=== PATIENT | male | born 1970 | race Caucasian/White ===

== ENCOUNTER 2017-04-09 21:14 | Emergency (ER) | payer OTHER ==
[2017-04-09 21:28] VITALS: BP 123/90; PULSE 96
[2017-04-09 21:36] VITALS: O2SAT 97
--- NOTE | 2017-04-09 21:53 | ERPHSYRPT ---
- History of Present Illness Time Seen by Provider: 04/09/17 21:51 Source: patient Exam Limitations: no limitations Patient Subjective Stated Complaint: pt states he has had a bump on the baci of his neck for several days and recently he has been applying drawing kenroy and tonight he noticed a large amt of thick white drainage on his shirt fromthe area Triage Nursing Assessment: pt is awake and alert and able to answer questions - there is a large red rasised area on the back of his neck Physician History: Pt. with wound to R neck area for past 2 days. States started off with possible pimple but has gotten bigger over past two days. Pt. noted some redness, swelling and placed salve on wound. Now states that wound was brought to a head and now draining purulent material. No fever, chills or systemic symptoms. Minimal pain presently unless certain part of wound touched. Timing/Duration: day(s) (2), constant Quality: burning Location: other (R Neck) Possible Causes: no cause identified Modifying Factors: Improves With: other (Salve) Associated Symptoms: No fever, No hives Allergies/Adverse Reactions: No Known Drug Allergies Allergy (Unverified 04/09/17 21:38) Hx Tetanus, Diphtheria Vaccination/Date Given: No Hx Influenza Vaccination/Date Given: No Hx Pneumococcal Vaccination/Date Given: No Immunizations Up to Date: No - Review of Systems Constitutional: No Fever, No Chills Eyes: No Symptoms Ears, Nose, & Throat: No Symptoms Respiratory: No Cough, No Dyspnea Cardiac: No Chest Pain, No Edema, No Syncope Abdominal/Gastrointestinal: No Abdominal Pain, No Nausea, No Vomiting, No Diarrhea Genitourinary Symptoms: No Dysuria Musculoskeletal: No Back Pain, No Neck Pain Skin: Cellulitis, No Rash Neurological: No Dizziness, No Focal Weakness, No Sensory Changes Psychological: No Symptoms Endocrine: No Symptoms All Other Systems: Reviewed and Negative - Past Medical History Pertinent Past Medical History: No Neurological History: No Pertinent History ENT History: No Pertinent History Cardiac History: No Pertinent History Respiratory History: No Pertinent History Endocrine Medical History: No Pertinent History Musculoskeletal History: No Pertinent History GI Medical History: No Pertinent History History: No Pertinent History Psycho-Social History: No Pertinent History Male Reproductive Disorders: No Pertinent History - Past Surgical History Past Surgical History: No - Social History Smoking Status: Current every day smoker Exposure to second hand smoke: Yes Drug Use: marijuana Patient Lives Alone: No - Nursing Vital Signs Nursing Vital Signs: Initial Vital Signs Temperature 99.4 F Temperature Source Oral Pulse Rate 96 Respiratory Rate 20 Blood Pressure [Right Arm] 123/90 Pain Intensity 0 - Physical Exam General Appearance: no apparent distress, alert Eye Exam: PERRL/EOMI, eyes nml inspection Ears, Nose, Throat Exam: normal ENT inspection, pharynx normal, moist mucous membranes Neck Exam: supple, full range of motion, other (R lower neck wound about 2 X 2 cm with erythema/swelling and mild tenderness to palpation. Wound with opening present and moderate amount of purulent material expressed from area.) Respiratory Exam: normal breath sounds, lungs clear, No respiratory distress Cardiovascular Exam: regular rate/rhythm, normal heart sounds Gastrointestinal/Abdomen Exam: soft, mass, No tenderness Back Exam: normal inspection, normal range of motion, No CVA tenderness, No vertebral tenderness Extremity Exam: normal inspection, normal range of motion Neurologic Exam: alert, oriented x 3, cooperative, normal mood/affect, sensation nml, No motor deficits Skin Exam: normal color, warm, dry, other (abscess described in neck exam) Lymphatic Exam: No adenopathy SpO2 Interpretation: normal SpO2: 97 Oxygen Delivery: Room Air - Course Nursing assessment & vital signs reviewed: Yes Ordered Tests: Active Orders 24 hr Category Date Time Status CULTURE,WOUND Stat Lab 04/09/17 21:58 Ordered Medication Summary Discontinued Medications Generic Name Dose Route Start Last Admin Trade Name Freq PRN Reason Stop Dose Admin Bacitracin Confirm 04/09/17 21:56 Baciguent Packet Administered 04/09/17 21:57 Dose 1 gm .ROUTE .STK-MED ONE Ceftriaxone Sodium Confirm 04/09/17 21:56 Rocephin 1000 Mg Inj Administered 04/09/17 21:57 Dose 1,000 mg .ROUTE .STK-MED ONE Ceftriaxone Sodium 1,000 mg 04/09/17 21:57 Rocephin 1000 Mg Inj IM 04/09/17 21:58 STAT ONE Lidocaine HCl Confirm 04/09/17 21:56 Xylocaine 1% Hcl 20 Ml Mdv Administered 04/09/17 21:57 Dose 1 ml .ROUTE .STK-MED ONE - Progress Progress: improved Progress Note: 04/09/17 22:07 Moderate amount of purulent material expressed from area. Wound clean with Iodine and sterile dressing placed with Neosporin ointment. Pt. also given Rocephin 1 gm IM in ED 04/09/17 22:12 Counseled pt/family regarding: diagnosis - Departure Time of Disposition: 22:08 Departure Disposition: Home Clinical Impression: Neck abscess Condition: Stable Critical Care Time: No Instructions: Wound Infection Additional Instructions: RX: Bactrim Keep wound clean and dry, change dressing once a day Return for worse swelling, redness, pain, fever, increasing size or any problems Prescriptions: Sulfamethoxazole/Trimethoprim [Bactrim Ds Tablet] 1 each PO BID #20 tablet
[2017-04-09] MEDS ORDERED: XYLOCAINE 1% HCL 20 ML MDV ONE (21:56)
[2017-04-09] MEDS ORDERED: Rocephin 1000 MG INJ ONE (21:56)
[2017-04-09] MEDS ORDERED: BACIGUENT PACKET ONE (21:56)
[2017-04-09] MEDS ORDERED: Rocephin 1000 MG INJ IM ONE (21:57)
[2017-04-09] MEDS ORDERED: BACIGUENT PACKET TP ONE (22:07)
== END 2017-04-09 23:04 | disposition home or self-care (01) ==
LOC: ED 21:14
DX: L02.11 Cutaneous abscess of neck (principal)
CPT/HCPCS: 87070; 96372; 99284; J0696; A9270-GY

== ENCOUNTER 2017-05-22 17:29 | Emergency (ER) | payer SELFPAY ==
[2017-05-22] MEDS ORDERED: BACIGUENT PACKET ONE (18:06)
--- NOTE | 2017-05-22 18:10 | ERPHSYRPT ---
- History of Present Illness Time Seen by Provider: 05/22/17 17:54 Source: patient Exam Limitations: no limitations Patient Subjective Stated Complaint: states has red sore area on back of neck. states is draining pus and blood. has had it for a week. Triage Nursing Assessment: ambulated to room per self. skin w/d, color normal. large red area noted to back of neck. slight drainage noted. area tender to touch. Physician History: The patient is a 47-year-old male with his brother complaining that he has a red sore on the back of his neck for one month. He was treated in the emergency room several weeks ago for this. He had a lesion lanced and pus drained from it. He was given Bactrim. The antibiotic did help but the redness , tenderness, and swelling has returned over the past week. He has attempted to squeeze the pus out on his own. He states it has drained some pus and blood. Today it is very sore. Timing/Duration: week(s) (4) Quality: painful Severity: moderate Location: neck Possible Causes: no cause identified Associated Symptoms: swelling/mass/lumps Allergies/Adverse Reactions: No Known Drug Allergies Allergy (Verified 05/22/17 17:37) Hx Tetanus, Diphtheria Vaccination/Date Given: No Hx Influenza Vaccination/Date Given: No Hx Pneumococcal Vaccination/Date Given: No - Review of Systems Constitutional: No Fever, No Chills Eyes: No Symptoms Ears, Nose, & Throat: No Symptoms Respiratory: No Cough, No Dyspnea Cardiac: No Chest Pain, No Edema, No Syncope Abdominal/Gastrointestinal: No Abdominal Pain, No Nausea, No Vomiting, No Diarrhea Genitourinary Symptoms: No Dysuria Musculoskeletal: No Back Pain, No Neck Pain Skin: Cellulitis, Other (abscess) Neurological: No Dizziness, No Focal Weakness, No Sensory Changes Psychological: No Symptoms Endocrine: No Symptoms Hematologic/Lymphatic: No Symptoms Immunological/Allergic: No Symptoms All Other Systems: Reviewed and Negative - Past Medical History Pertinent Past Medical History: No Neurological History: No Pertinent History ENT History: No Pertinent History Cardiac History: No Pertinent History Respiratory History: No Pertinent History Endocrine Medical History: No Pertinent History Musculoskeletal History: No Pertinent History GI Medical History: No Pertinent History History: No Pertinent History Psycho-Social History: No Pertinent History Male Reproductive Disorders: No Pertinent History - Past Surgical History Past Surgical History: No - Social History Smoking Status: Current every day smoker How long have you smoked: 30 Exposure to second hand smoke: No Drug Use: marijuana Patient Lives Alone: Yes - Nursing Vital Signs Nursing Vital Signs: Initial Vital Signs Temperature 99.1 F Temperature Source Oral Pulse Rate 86 Respiratory Rate 18 Blood Pressure [Right Arm] 150/82 Pain Intensity 1 - Physical Exam General Appearance: mild distress Eye Exam: PERRL/EOMI, eyes nml inspection Ears, Nose, Throat Exam: normal ENT inspection, pharynx normal, moist mucous membranes Neck Exam: normal inspection, non-tender, supple, full range of motion Respiratory Exam: normal breath sounds, lungs clear, No respiratory distress Cardiovascular Exam: regular rate/rhythm, normal heart sounds Gastrointestinal/Abdomen Exam: soft, mass, No tenderness Rectal Exam: not done Back Exam: normal inspection, normal range of motion, No CVA tenderness, No vertebral tenderness Extremity Exam: normal inspection, normal range of motion Neurologic Exam: alert, oriented x 3, cooperative, normal mood/affect, sensation nml, No motor deficits Skin Exam: other (Evaluation of the posterior neck reveals an erythematous area with fluctuance. The area is also very tender to palpation.) SpO2 Interpretation: normal SpO2: 86 Oxygen Delivery: Room Air - Progress Progress: improved Progress Note: 05/22/17 18:15 The area was size gently with a left blade scalpel. Minimal amount of purulent material was expressed. The area did bleed freely. I offered to anesthetize the entire area and tried to go in and break up any loculated areas, but the patient was not tolerating the procedure. We opted to try another course of antibiotic at this time. Counseled pt/family regarding: diagnosis, need for follow-up - Departure Time of Disposition: 18:17 Departure Disposition: Home Clinical Impression: Abscess Condition: Stable Critical Care Time: No Additional Instructions: You have an abscess on the back of your neck with surrounding cellulitis. The area was drained with resulting pus and blood. You did not tolerate the procedure very well so we decided not to continue today. Instead you will be put on clindamycin 300 mg 4 times a day for 10 days. Follow-up with your primary care physician on Wednesday. You were also given a prescription for Tylenol No. 3 to be taken every 4-6 hours as needed. Prescriptions: Clindamycin HCl 1 cap PO QID #40 capsule Codeine Phosphate/APAP #3 [Tylenol #3 Tablet] 1 tab PO Q4-6HPRN PRN #10 tablet PRN Reason: Pain
[2017-05-22 18:31] VITALS: BP 126/79; PULSE 79; O2SAT 97
[2017-05-22] MEDS ORDERED: BACIGUENT PACKET TP ONE (18:39)
== END 2017-05-22 18:31 | disposition home or self-care (01) ==
LOC: ED 17:29
PROC: 0H94XZZ Drainage of Neck Skin, External Approach (ICD-10-PCS; principal; 2017-05-22)
DX: L02.11 Cutaneous abscess of neck (principal)
CPT/HCPCS: 10060; 10160; 87070; 99283; A9270-GY